=== PATIENT | female | born 1985 | race Caucasian/White ===

== ENCOUNTER → 2017-05-13 | Outpatient (CLI) | payer BC ==
[2017-05-13 08:07] LABS: HCT 43.5 % (34.0-46.0); HGB 13.7 gm/dL (11.4-16.0); MCH 28.9 pg (25.0-35.0); MCHC 31.6 g/dL (31.0-37.0); MCV 91.7 fL (80.0-100.0); Mean Platelet Volume 8.8; Platelet Count 216 k/uL (150-450); RBC 4.75 m/uL (3.80-5.40); RDW 14.6 % (11.5-15.5); WBC 7.7 k/uL (3.8-10.6)
[2017-05-13 08:38] LABS: T4, Free (Free Thyroxine) 0.93 ng/dL (0.78-2.19)
[2017-05-13 08:50] LABS: ALT 28 U/L (9-52); AST 19 U/L (14-36); Albumin 4.3 g/dL (3.5-5.0); Alkaline Phosphatase 56 U/L (38-126); Anion Gap 9 mmol/L; Blood Urea Nitrogen 15 mg/dL (7-17); Calcium 9.4 mg/dL (8.4-10.2); Carbon Dioxide 26 mmol/L (22-30); Chloride 107 mmol/L (98-107); Cholesterol 199 mg/dL (<200); Glucose 97 mg/dL (74-99); HDL Cholesterol 58 mg/dL (40-60); LDL Cholesterol,Calculated 128 mg/dL (0-99); Potassium 4.1 mmol/L (3.5-5.1); Sodium 142 mmol/L (137-145); Total Bilirubin 0.8 mg/dL (0.2-1.3); Total Protein 6.9 g/dL (6.3-8.2); Triglycerides 63 mg/dL (<150)
== END | disposition home or self-care (01) ==
LOC: LABWHC1 07:47
PROVIDERS: ATTEND Psychiatry & Neurology Psychiatry
DX: E03.9 Hypothyroidism, unspecified (principal)
CPT/HCPCS: 36415; 80053; 80061; 84439; 84443; 85027; 86038

== ENCOUNTER → 2020-06-14 | Outpatient (CLI) | payer OTHER ==
[2020-06-14 14:51] LABS: HCT 42.8 % (37.2-46.3); HGB 13.5 g/dL (12.0-15.0); MCH 27.7 pg (27.0-32.0); MCHC 31.5 g/dL (32.0-37.0); MCV 87.9 fL (80.0-97.0); Platelet Count 219 X 10*3/uL (140-440); RBC 4.87 X 10*6/uL (4.10-5.20); RDW 13.6 % (11.5-14.5); WBC 8.87 X 10*3/uL (4.50-10.00)
[2020-06-14 15:21] LABS: African American GFR (CKD) 95.3 (60.0-200.0); Albumin 4.7 g/dL (3.80-4.90); Albumin/Globulin Ratio 2.47 (1.60-3.17); Anion Gap 7.3 mmol/L (4.00-12.00); BUN/Creat Ratio 15.56 Ratio (12.00-20.00); Carbon Dioxide 25.7 mmol/L (21.6-31.8); Chol/HDL Ratio 4.77; Globulin 1.9 g/dL (1.6-3.3); LDL Cholesterol,Calculated 159.2 mg/dL (0.0-131.0); Non-African American GFR(CKD) 82.3 (60.0-200.0); Total Bilirubin 0.8 mg/dL (0.3-1.2); Total Protein 6.6 g/dL (6.2-8.2); VLDL Calculation 21.8 mg/dL (5.00-40.00)
== END | disposition home or self-care (01) ==
LOC: LABWHC1 09:14
PROVIDERS: ATTEND Psychiatry & Neurology Psychiatry
DX: F41.1 Generalized anxiety disorder (principal)
CPT/HCPCS: 36415; 80053; 80061; 84439; 84443; 85027

== ENCOUNTER → 2021-01-15 | Outpatient (CLI) | payer MEDICAID ==
[2021-01-15 15:16] LABS: HCT 43.1 % (37.2-46.3); HGB 13.5 g/dL (12.0-15.0); MCH 28.5 pg (27.0-32.0); MCHC 31.3 g/dL (32.0-37.0); MCV 90.9 fL (80.0-97.0); Mean Platelet Volume 12.6 fL (9.5-12.2); Platelet Count 211 X 10*3/uL (140-440); RBC 4.74 X 10*6/uL (4.10-5.20); WBC 7.72 X 10*3/uL (4.50-10.00)
[2021-01-15 17:04] LABS: African American GFR (CKD) 109.2 (60.0-200.0); Albumin 4.3 g/dL (3.80-4.90); Albumin/Globulin Ratio 1.95 (1.60-3.17); Anion Gap 7.7 mmol/L (4.00-12.00); BUN/Creat Ratio 22.5 Ratio (12.00-20.00); Calcium 9.3 mg/dL (8.7-10.3); Carbon Dioxide 24.3 mmol/L (21.6-31.8); Chol/HDL Ratio 4.59; Globulin 2.2 g/dL (1.6-3.3); LDL Cholesterol,Calculated 133.8 mg/dL (0.0-131.0); Non-African American GFR(CKD) 94.2 (60.0-200.0); Potassium 4.2 mmol/L (3.5-5.5); Total Bilirubin 0.5 mg/dL (0.2-1.2); Total Protein 6.5 g/dL (6.2-8.2); VLDL Calculation 13.2 mg/dL (5.00-40.00)
== END | disposition home or self-care (01) ==
LOC: LABWHC1 09:08
PROVIDERS: ATTEND Family Medicine
DX: Z00.01 Encounter for general adult medical examination with abnormal findings (principal)
CPT/HCPCS: 36415; 80053; 80061; 85027

== ENCOUNTER → 2021-01-15 | Outpatient (CLI) | payer MEDICAID | END | disposition home or self-care (01) | LOC: LABWHC1 13:04 | DX: N95.1 Menopausal and female climacteric states (principal) | CPT/HCPCS: 36415; 82397 ==

== ENCOUNTER → 2021-03-15 | Outpatient (CLI) | payer MEDICAID ==
--- NOTE | 2021-03-15 17:36 | CONS ---
CONSULTATION DATE OF SERVICE: 03/15/2021 This 35-year-old lady has been evaluated in Sleep Center for possible obstructive sleep apnea-hypopnea syndrome and for significant excessive daytime sleepiness and episodes of gsh-nq-yqyax movements during sleep. HISTORY OF PRESENT ILLNESS/SLEEP-WAKE EVALUATION: Patient's usual sleep schedule is from 11 p.m. until 9 a.m. She does have problems with falling asleep, has a TV set in the bedroom. She usually sleeps on the back and side positions. According to her , she snores and has witnessed episodes of stopped breathing during sleep. The patient wakes up from sleep with episodes of gasping for air up to 10 times at night, and up to 2 episodes of nocturia. Positive history of kicking, punching, talking, urk-it-ztvrc movements during sleep. No history of hypnagogic hallucinations, sleep paralysis or cataplexy. In the morning the patient wakes up tired, has difficulties paying attention, falling asleep during the day, has problems with concentration, irritability, depression. Dillon Sleepiness Scale is significantly increased at 15. She takes 1 to 2 naps, according to patient, whenever possible. PAST MEDICAL HISTORY: Positive for depression. PAST SURGICAL HISTORY: Breast reduction. Cyst removed from abdomen. MEDICATIONS: 1. Cymbalta 90 mg once a day. 2. medications. SOCIAL HISTORY: Negative for smoking or using alcohol. FAMILY HISTORY: Sleep apnea, cancer, heart problems. REVIEW OF SYSTEMS: Multiple awakenings from sleep significant excessive daytime sleepiness. No fevers. No double vision. No recent chest pain. No shortness of breath. No abdominal pain. No bleeding episodes. No blood in the urine. No seizure episodes. PHYSICAL EXAMINATION: GENERAL: Pleasant lady without distress. VITAL SIGNS: BP 107/71, HR 70, RR 15, height 5 feet 7-1/2 inches, weight 180 pounds, body mass index 27.7, temperature 98.9, oxygen saturation at room air 100%. HEENT: PERRLA, EOMI, evaluation of oropharynx showed tongue protrudes midline. Extremely low position of soft palate; Mallampati IV. NECK: Supple, no JVD. Thyroid is not palpable. Neck measures 14 inches in circumference. LUNGS: Clear to percussion and to auscultation. Good air exchange. No wheezing or rhonchi. HEART: S1, S2 regular. No murmurs, gallops, or rubs. ABDOMEN: Soft and nontender. Bowel sounds are present. No organomegaly appreciated. EXTREMITIES: No clubbing or cyanosis. ACTUARIAL MANAGER: Awake, alert, and oriented X3. Cranial nerves 2 to 7 intact. There is no fasciculation or atrophy. noted. No focal deficits observed. IMPRESSION: 1. Snoring, multiple awakenings from sleep with episodes of gasping for air, extremely low position of soft palate, significant excessive daytime sleepiness; obstructive sleep apnea-hypopnea syndrome. 2. Very high level of sleepiness. Dillon Sleepiness Scale of 15, dictating necessity to include narcolepsy without cataplexy and idiopathic hypersomnia in differential diagnosis. 3. Pvl-wj-fzpnq movements; possibly REM sleep behavioral disorder. 4. Significant amount of leg movements. Possible periodic limb movements. 5. History of depression. 6. Status post breast reduction. 7. Status post cyst removed from abdomen. PLAN: 1. Polysomnography for evaluation of patient's breathing during sleep. 2. CPAP/BiPAP titration if sleep study confirms obstructive sleep apnea-hypopnea syndrome. 3. Preferable position during sleep on the side. 4. No driving if patient feels any sleepiness. 5. I will see patient for follow up visit to explain results of testing and following plan. 6. If sleep study is negative, the patient will need to proceed with a multiple sleep latency test. 7. Precautions related to possible REM sleep behavioral disorder. No access to fire at home. Close doors. Close windows. Otoniel-size bed. Preferably put mattress on the floor. Thank you very much for referring this patient for consultation. Sincerely, Titus Angel MD, PhD, FAASM Diplomat of [place] [employer] Sleep Medicine Board of [place] [employer] Spanish Interpreter of [facility] [place] MMODL / IJN: [id number] /
== END ==
LOC: SLEEP 15:28
PROVIDERS: ATTEND Internal Medicine
DX: G47.33 Obstructive sleep apnea (adult) (pediatric) (principal); F32.9 Major depressive disorder, single episode, unspecified; Z98.890 Other specified postprocedural states
CPT/HCPCS: 99211

== ENCOUNTER → 2021-04-29 | Outpatient (CLI) | payer MEDICAID | END | disposition home or self-care (01) | LOC: LABMAIN 18:45 | PROVIDERS: ATTEND Physician Assistant Medical | DX: U07.1 COVID-19 (principal) | CPT/HCPCS: 87635 ==

== ENCOUNTER → 2021-05-23 | Outpatient (CLI) | payer MEDICAID ==
--- NOTE | 2021-05-23 17:13 | SFUN ---
SLEEP CENTER FOLLOW UP NOTE DATE OF SERVICE: 05/23/2021 A 35-year-old lady has been followed in Sleep Center for treatment of narcolepsy. She was recently started on treatment with Adderall 5 mg twice a day and with this regimen she feels significantly better, but she is following by IVF clinic and she was recommended there that she should not take Adderall. Her [place] Sleepiness Scale today increased to 15. CURRENT MEDICATIONS: Cymbalta 10 units. . PHYSICAL EXAMINATION: GENERAL: Patient in no distress. BP 195/64, HR 64, RR 12, height 5 feet 7-1/2 inches, weight 180 pounds, temperature 98.5, oxygen saturation at room air 96%. Oropharynx: Low position of soft palate, Mallampati 4. NECK: Supple, no JVD. Thyroid is not palpable. LUNGS: Clear to percussion and to auscultation. Good air exchange. No wheezing or rhonchi. HEART: S1, S2 regular. No murmurs, gallops, or rubs. ABDOMEN: Soft and nontender. Bowel sounds are present. No organomegaly appreciated. EXTREMITIES: No clubbing or cyanosis. LAND SURVEYOR: Awake, alert, and oriented X3. Cranial nerves 2 to 7 intact. There is no fasciculation or atrophy. noted. No focal deficits observed. IMPRESSION: 1. 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 2. History of depression. 3. Status post breast reduction surgery. 4. Status post cyst removed from the abdomen. PLAN: 1. Adderall has been stopped. 2. We will consider treatment with modafinil 200 mg in the morning once a day. After discussion with IVF Clinic if there are no contraindications. 3. Precautions related to driving. No driving if feeling sleepiness. 4. Sleep hygiene with regular time in bed for 7-1/2-8 hours. 5. Daytime naps permitted. Thank you very much for allowing me to participate in management of your patient. Sincerely, Titus Angel MD, PhD, FAASM Diplomat of [place] [employer] Sleep Medicine Board of [place] [employer] Automobile Glass Technician of [facility] [place] MMODL / JANETTEN: [id number] /
== END ==
LOC: SLEEP 13:38
PROVIDERS: ATTEND Internal Medicine
DX: G47.33 Obstructive sleep apnea (adult) (pediatric) (principal); G47.419 Narcolepsy without cataplexy; F32.A Depression, unspecified; Z98.890 Other specified postprocedural states

== ENCOUNTER → 2021-05-24 | Outpatient (CLI) | payer MEDICAID | END | disposition home or self-care (01) | LOC: LABMAIN 20:17 | PROVIDERS: ATTEND Emergency Medicine | DX: Z20.822 Contact with and (suspected) exposure to COVID-19 (principal) | CPT/HCPCS: 87635 ==

== ENCOUNTER 2021-11-03 18:01 | Emergency (ER) | payer MEDICAID, OTHER ==
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
[2021-11-03 18:32] VITALS: BP 120/70; PULSE 86; RESP 22; TEMP 97.8
--- NOTE | 2021-11-03 18:33 | XR ---
EXAMINATION TYPE: XR clavicle RT DATE OF EXAM: 11/03/2021 COMPARISON: NONE HISTORY: Pain TECHNIQUE: 2 views FINDINGS: I see no fracture nor dislocation. AC joint is intact. IMPRESSION: Negative right clavicle exam.
--- NOTE | 2021-11-03 18:34 | XR ---
EXAMINATION TYPE: XR chest 2V DATE OF EXAM: 11/03/2021 COMPARISON: NONE HISTORY: Pain TECHNIQUE: 2 views FINDINGS: Heart and mediastinum are normal. Lungs are clear. Diaphragm is normal. Bony thorax is inta ct. Pulmonary vascularity is normal. IMPRESSION: Normal chest. Normal heart
--- NOTE | 2021-11-03 18:35 | XR ---
EXAMINATION TYPE: XR soft tissue neck DATE OF EXAM: 11/03/2021 COMPARISON: NONE HISTORY: Pain TECHNIQUE: 2 views FINDINGS: Cervical vertebra have normal alignment. Posterior elements are intact. No compression frac ture. Prevertebral soft tissues appear normal. Epiglottis is normal. Subglottic trachea is normal. Tonsils and adenoids appear normal. IMPRESSION: Normal cervical soft tissue exam.
== END 2021-11-03 18:48 | disposition home or self-care (01) ==
LOC: EC 18:01
DX: S20.219A Contusion of unspecified front wall of thorax, initial encounter (principal); T74.11XA Adult physical abuse, confirmed, initial encounter; Y04.8XXA Assault by other bodily force, initial encounter
CPT/HCPCS: 70360; 71046; 99285

== ENCOUNTER → 2021-11-03 | Outpatient (CLI) | payer MEDICAID ==
[2021-11-03 11:36] LABS: HCT 45.2 % (37.2-46.3); HGB 14.2 g/dL (12.0-15.0); MCH 28.2 pg (27.0-32.0); MCHC 31.4 g/dL (32.0-37.0); MCV 89.9 fL (80.0-97.0); Mean Platelet Volume 11.2 fL (9.5-12.2); NRBC Per 100 WBC 0 /100 WBCS (0.0-0.0); Platelet Count 235 X 10*3/uL (140-440); RBC 5.03 X 10*6/uL (4.10-5.20); WBC 7.38 X 10*3/uL (4.50-10.00)
[2021-11-03 12:09] LABS: ALT 16 U/L (8-44); AST 18 U/L (13-35); African American GFR (CKD) 108.4 (60.0-200.0); Albumin 4.9 g/dL (3.8-4.9); Albumin/Globulin Ratio 2.04 (1.60-3.17); Alkaline Phosphatase 77 U/L (41-126); BUN/Creat Ratio 25.25 Ratio (12.00-20.00); Blood Urea Nitrogen 20.2 mg/dL (9.0-27.0); Calcium 9.2 mg/dL (8.7-10.3); Carbon Dioxide 24.4 mmol/L (20.0-27.5); Chloride 106 mmol/L (96-109); Chol/HDL Ratio 4.07 Ratio; Globulin 2.4 g/dL (1.6-3.3); Glucose 94 mg/dL (70-110); LDL Cholesterol,Calculated 156.1 mg/dL (0.0-131.0); Non-African American GFR(CKD) 93.5 (60.0-200.0); Sodium 140 mmol/L (135-145); Total Protein 7.3 g/dL (6.2-8.2); VLDL Calculation 12.78 mg/dL (5.00-40.00)
== END | disposition home or self-care (01) ==
LOC: LABMAIN 07:30
PROVIDERS: ATTEND Psychiatry & Neurology Psychiatry
DX: F41.1 Generalized anxiety disorder (principal)
CPT/HCPCS: 80053; 80061; 84439; 84443; 85027

== ENCOUNTER → 2022-01-17 | Outpatient (CLI) | payer MEDICAID ==
[2022-01-17 14:36] LABS: HCT 42.9 % (37.2-46.3); HGB 13.7 g/dL (12.0-15.0); MCH 28.7 pg (27.0-32.0); MCHC 31.9 g/dL (32.0-37.0); MCV 89.9 fL (80.0-97.0); Mean Platelet Volume 11.3 fL (9.5-12.2); NRBC Per 100 WBC 0 /100 WBCS (0.0-0.0); Platelet Count 217 X 10*3/uL (140-440); RBC 4.77 X 10*6/uL (4.10-5.20); WBC 5.71 X 10*3/uL (4.50-10.00)
[2022-01-17 17:33] LABS: ALT 20 U/L (8-44); AST 24 U/L (13-35); African American GFR (CKD) 108.4 (60.0-200.0); Albumin 4.4 g/dL (3.8-4.9); Alkaline Phosphatase 71 U/L (41-126); Blood Urea Nitrogen 17.6 mg/dL (9.0-27.0); Calcium 9.2 mg/dL (8.7-10.3); Carbon Dioxide 24.5 mmol/L (20.0-27.5); Chloride 105 mmol/L (96-109); Ferritin 54.2 ng/mL (10.0-291.0); Globulin 2.2 g/dL (1.6-3.3); Glucose 93 mg/dL (70-110); Iron 109 ug/dL (50-170); Non-African American GFR(CKD) 93.5 (60.0-200.0); Potassium 4.4 mmol/L (3.5-5.5); Sodium 141 mmol/L (135-145); Total Protein 6.6 g/dL (6.2-8.2)
[2022-01-17 17:34] LABS: % Iron Saturation 33.56 (12.00-45.00); Chol/HDL Ratio 4.85 Ratio; LDL Cholesterol,Calculated 148.1 mg/dL (0.0-131.0); Total Iron Binding Capacity 325 ug/dL (228-460)
== END | disposition home or self-care (01) ==
LOC: LABWHC1 09:07
PROVIDERS: ATTEND Family Medicine
DX: Z00.01 Encounter for general adult medical examination with abnormal findings (principal); D64.9 Anemia, unspecified
CPT/HCPCS: 36415; 80053; 80061; 82607; 82728; 82746; 83540; 83550; 85027

== ENCOUNTER 2022-01-20 18:19 | Emergency (ER) | payer MEDICAID, OTHER ==
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
[2022-01-20 18:34] VITALS: BP 103/57; PULSE 78; RESP 16; TEMP 99.3
--- NOTE | 2022-01-20 18:52 | XR ---
EXAMINATION TYPE: XR shoulder complete RT DATE OF EXAM: 01/20/2022 COMPARISON: NONE HISTORY: Shoulder pain TECHNIQUE: 3 views FINDINGS: There is no evidence of fracture nor dislocation. Joint spaces are normal. No pathologic ca lcification. IMPRESSION: Negative right shoulder exam. No fracture.
== END 2022-01-20 18:57 | disposition home or self-care (01) ==
LOC: EC 18:19
DX: S46.911A Strain of unspecified muscle, fascia and tendon at shoulder and upper arm level, right arm, initial encounter (principal); X50.9XXA Other and unspecified overexertion or strenuous movements or postures, initial encounter
CPT/HCPCS: 99283

== ENCOUNTER → 2022-01-28 | Outpatient (CLI) | payer OTHER ==
--- NOTE | 2022-01-28 21:33 | MR ---
EXAMINATION TYPE: MR shoulder RT wo con DATE OF EXAM: 01/28/2022 COMPARISON: Right shoulder x-ray 8 days ago HISTORY: Right shoulder pain and decreased ROM due to work related injury. TECHNIQUE: Multiplanar, multisequence imaging of the right shoulder is performed without contrast. FINDINGS: Rotator Cuff: Distal supraspinatus and infraspinatus tendons are grossly intact. Subscapularis tendon is intact. Rotator cuff muscle bulk is preserved. Acromioclavicular Joint: Sdyg-vl-joupnszm narrowing and superior capsular hypertrophy. Underlying fat plane maintained. No significant spurring. Glenohumeral Joint: Small joint effusion. No significant spurring. Labrum: The labrum appears grossly intact given limitation of non-arthrogram study. Biceps Tendon: The long head of biceps is in normal location within bicipital groove. Bone marrow signal: No focal abnormal marrow signal is appreciated. Other: No additional significant abnormality is appreciated. IMPRESSION: No rotator cuff or labral tear identified.
== END | disposition home or self-care (01) ==
LOC: RADMRIMAIN 20:10
PROVIDERS: ATTEND Emergency Medicine
DX: M25.511 Pain in right shoulder (principal)

== ENCOUNTER 2022-07-25 11:59 | Emergency (ER) | payer MEDICAID, OTHER ==
[2022-07-25 12:19] VITALS: BP 123/66; PULSE 77; RESP 18
[2022-07-25 12:20] VITALS: TEMP 98.1
--- NOTE | 2022-07-25 12:30 | ED ---
General Adult HPI - General Chief complaint: Needlestick/Exposure Stated complaint: IHS Time Seen by Provider: 07/25/22 12:01 Source: patient, RN notes reviewed Mode of arrival: ambulatory Limitations: no limitations - History of Present Illness Initial comments: 28-year-old female presents emergency Department with chief complaint of needlestick. Patient was disposing vacuum container for blood cultures and states it poked her finger. Patient states that poked her right middle finger. Patient merely washed. Patient's tetanus is up-to-date. Patient offers no other complaints. - Related Data Allergies Allergy/AdvReac Type Severity Reaction Status Date / Time chocolate flavor Allergy Nausea & Verified 07/25/22 12:19 Vomiting & Diarrhea Review of Systems ROS Statement: Those systems with pertinent positive or pertinent negative responses have been documented in the HPI. ROS Other: All systems not noted in ROS Statement are negative. Past Medical History Past Medical History: No Reported History Additional Past Medical History / Comment(s): narcolepsy History of Any Multi-Drug Resistant Organisms: None Reported Past Surgical History: Breast Surgery Additional Past Surgical History / Comment(s): breast reduction, D&C and uterine ablasion. salpingectomy Smoking Status: Never smoker Past Alcohol Use History: Occasional Past Drug Use History: None Reported General Exam Limitations: no limitations General appearance: alert, in no apparent distress Head exam: Present: atraumatic, normocephalic, normal inspection Eye exam: Present: normal appearance, PERRL, EOMI. Absent: scleral icterus, conjunctival injection, periorbital swelling ENT exam: Present: normal exam, normal oropharynx, mucous membranes moist Neck exam: Present: normal inspection, full ROM. Absent: tenderness, meningismus, lymphadenopathy Respiratory exam: Present: normal lung sounds bilaterally. Absent: respiratory distress, wheezes, rales, rhonchi, stridor Cardiovascular Exam: Present: regular rate, normal rhythm, normal heart sounds. Absent: systolic murmur, diastolic murmur, rubs, gallop, clicks Extremities exam: Present: other (Right hand third digit puncture wound noted) Course Vital Signs 07/25/22 12:13 Temperature 98.1 F Pulse Rate 77 Respiratory 18 Rate Blood Pressure 123/66 O2 Sat by Pulse 99 Oximetry Medical Decision Making - Medical Decision Making Was pt. sent in by a medical professional or institution (Dr., PA, MUNICIPAL CLERK, urgent care, hospital, or snf...) When possible be specific @ -No Did you speak to anyone other than the patient for history (EMS, parent, family, police, friend...)? What history was obtained from this source @ -No Did you review nursing and triage notes (agree or disagree)? Why? @ -I reviewed and agree with nursing and triage notes Were old charts reviewed (outside hosp., previous admission, EMS record, old EKG, old radiological studies, urgent care reports/EKG's, snf records)? Report findings @ -No old charts were reviewed Differential Diagnosis (chest pain, altered mental status, abdominal pain women, abdominal pain men, vaginal bleeding, weakness, fever, dyspnea, syncope, headache, dizziness, GI bleed, back pain, seizure, CVA, palpatations, mental health, musculoskeletal)? @ -Needlestick EKG interpreted by me (3pts min.). @ -[None X-rays interpreted by me (1pt min.). @ -None done CT interpreted by me (1pt min.). @ -None done U/S interpreted by me (1pt. min.). @ -None done What testing was considered but not performed or refused? (CT, X-rays, U/S, labs)? Why? @ -None What meds were considered but not given or refused? Why? @ -None Did you discuss the management of the patient with other professionals (professionals i.e. FLOYD Diaz, MUNICIPAL CLERK, lab, RT, psych nurse, social work specialist, community service worker, teacher, aboriginal liaison officer, pillowcase folder)? Give summary @ -No Was smoking cessation discussed for >3mins.? @ -No Was critical care preformed (if so, how long)? @ -No Were there social determinants of health that impacted care today? How? (Homelessness, low income, unemployed, alcoholism, drug addiction, transportation, low edu. Level, literacy, decrease access to med. care, snf, rehab)? @ -No Was there de-escalation of care discussed even if they declined (Discuss DNR or withdrawal of care, Hospice)? DNR status @ -No What co-morbidities impacted this encounter? (DM, HTN, Smoking, COPD, CAD, Cancer, CVA, ARF, Chemo, Hep., AIDS, mental health diagnosis, sleep apnea, morbid obesity)? @ -None Was patient admitted / discharged? Hospital course, mention meds given and route, prescriptions, significant lab abnormalities, going to OR and other pertinent info. @ -[Discharge patient has a needlestick patient offered prophylaxis will be based on initial HIV testing. Return parameters were discussed. Undiagnosed new problem with uncertain prognosis? @ -No Drug Therapy requiring intensive monitoring for toxicity (Heparin, Nitro, Insulin, Cardizem)? @ -No Were any procedures done? @ -No Diagnosis/symptom? @ -Needlestick Acute, or Chronic, or Acute on Chronic? @ -Acute Uncomplicated (without systemic symptoms) or Complicated (systemic symptoms)? @ -Uncomplicated Side effects of treatment? @ -No Exacerbation, Progression, or Severe Exacerbation? @ -No Poses a threat to life or bodily function? How? (Chest pain, [place], [place], pneumonia, PE, COPD, DKA, ARF, appy, cholecystitis, CVA, Diverticulitis, Homicidal, Suicidal, threat to staff... and all critical care pts) @ -No Disposition Clinical Impression: Needle stick injury of finger Disposition: HOME SELF-CARE Condition: Stable Instructions (If sedation given, give patient instructions): Needle Stick Injuries (ED) Additional Instructions: Please return to the Emergency Department if symptoms worsen or any other concerns. Is patient prescribed a controlled substance at d/c from ED?: No Referrals: Ryan Chau MD [Primary Care Provider] - 1-2 days Time of Disposition: 12:30
== END 2022-07-25 12:41 | disposition home or self-care (01) ==
LOC: EC 11:59
DX: S61.232A Puncture wound without foreign body of right middle finger without damage to nail, initial encounter (principal); Z91.018 Allergy to other foods; W46.1XXA Contact with contaminated hypodermic needle, initial encounter
CPT/HCPCS: 99282

== ENCOUNTER → 2022-11-28 | Outpatient (CLI) | payer MEDICAID ==
[2022-11-28 18:23] LABS: Basophils # (A) 0.05 X 10*3/uL (0.00-0.10); Basophils % (A) 0.7 %; Eosinophils # (A) 0.11 X 10*3/uL (0.04-0.35); Eosinophils % (A) 1.6 %; HGB 13.2 d/dL (12.0-15.0); Lymphocytes % (A) 20.3 %; MCH 28.7 pg (27.0-32.0); MCHC 31.4 d/dL (32.0-37.0); MCV 91.3 FL (80.0-97.0); Mean Platelet Volume 11.8 FL (9.5-12.2); Monocytes # (A) 0.36 X 10*3/uL (0.20-1.00); Monocytes % (A) 5.2 %; NRBC Per 100 WBC 0 X 10*3/uL (0.00-0.01); Neutrophils # (A) 4.94 X 10*3/uL (1.80-7.70); Neutrophils % (A) 71.9 %; Platelet Count 194 X 10*3/uL (140-440); RDW 13.9 % (11.5-14.5); WBC 6.88 X 10*3/uL (4.50-10.00)
[2022-11-28 18:45] LABS: % Iron Saturation 25.76 (12.00-45.00); ALT 18 U/L (8-44); AST 21 U/L (13-35); Blood Urea Nitrogen 15.3 mg/dL (9.0-27.0); Chol/HDL Ratio 4.33 Ratio; Ferritin 37.6 ng/mL (10.0-291.0); Glucose 98 mg/dL (70-110); Iron 85 UG/DL (50-170); LDL Cholesterol,Calculated 159.3 mg/dL (0.0-131.0); T4, Free (Free Thyroxine) 1.06 ng/dL (0.80-1.80); Total Iron Binding Capacity 330 UG/DL (228-460); VLDL Calculation 13.74 mg/dL (5.00-40.00)
== END | disposition home or self-care (01) ==
LOC: LABWHC1 09:17
PROVIDERS: ATTEND Obstetrics & Gynecology
DX: Z01.419 Encounter for gynecological examination (general) (routine) without abnormal findings (principal); E55.9 Vitamin D deficiency, unspecified; E78.00 Pure hypercholesterolemia, unspecified; E03.9 Hypothyroidism, unspecified; R53.83 Other fatigue
CPT/HCPCS: 36415; 80061; 82306; 82565; 82728; 82947; 83540; 83550; 84439; 84443; 84450; 84460; 84481; 84520; 85025

== ENCOUNTER 2023-04-08 03:59 | Emergency (ER) | payer MEDICAID ==
[2023-04-08 04:21] VITALS: RESP 20; TEMP 98.4
[2023-04-08] MEDS ORDERED: KETOROLAC 15 MG/ML 1 ML VIAL IM STA (04:39)
[2023-04-08] MEDS ORDERED: AMOXIC-POT CLAV 875-125MG 1 EACH TAB PO STA (04:39)
[2023-04-08] MEDS ORDERED: CIPROFLOXACIN-DEXAMETH 0.3-0.1% DROPS 7.5 ML BTL RIGHT EAR STA (04:39)
[2023-04-08] MEDS ORDERED: dexAMETHasone 2 MG TAB PO STA (04:39)
--- NOTE | 2023-04-08 04:41 | ED ---
ENT HPI - General Chief complaint: ENT Stated complaint: Earache, Neck pain, Sore throat Time Seen by Provider: 04/08/23 04:08 Source: patient, RN notes reviewed, old records reviewed Mode of arrival: ambulatory Limitations: no limitations - History of Present Illness Initial comments: This is a 37-year-old female to the emergency department for evaluation of severe facial pain neck pain right ear pain difficulty hearing, no fevers no difficulty swallowing sore throat and upper respiratory infections cough congestion patient has no medical history takes no medications no travel history no sick contacts, patient is very upset secondary amount of significant pain MD complaint: sore throat, ear pain, difficulty swallowing -: days(s) Location: R ear, throat Severity: severe Severity scale (1-10): 10 Consistency: constant Improves with: none Worsens with: none Associated Symptoms: sore throat, tinnitus - Related Data Allergies Allergy/AdvReac Type Severity Reaction Status Date / Time chocolate flavor Allergy Nausea & Verified 07/25/22 12:19 Vomiting & Diarrhea Review of Systems ROS Statement: Those systems with pertinent positive or pertinent negative responses have been documented in the HPI. ROS Other: All systems not noted in ROS Statement are negative. Past Medical History Past Medical History: No Reported History Additional Past Medical History / Comment(s): narcolepsy History of Any Multi-Drug Resistant Organisms: None Reported Past Surgical History: Breast Surgery Additional Past Surgical History / Comment(s): breast reduction, D&C and uterine ablasion. salpingectomy Smoking Status: Never smoker Past Alcohol Use History: Occasional Past Drug Use History: None Reported General Exam Limitations: no limitations General appearance: alert, in no apparent distress, anxious Head exam: Present: atraumatic, normocephalic, normal inspection Eye exam: Present: normal appearance, PERRL, EOMI. Absent: scleral icterus, conjunctival injection, periorbital swelling ENT exam: Present: normal exam, mucous membranes moist Neck exam: Present: normal inspection. Absent: tenderness, meningismus, lymphadenopathy Respiratory exam: Present: normal lung sounds bilaterally. Absent: respiratory distress, wheezes, rales, rhonchi, stridor Cardiovascular Exam: Present: normal rhythm, tachycardia, normal heart sounds. Absent: systolic murmur, diastolic murmur, rubs, gallop, clicks GI/Abdominal exam: Present: soft, normal bowel sounds. Absent: distended, tenderness, guarding, rebound, rigid Extremities exam: Present: normal inspection, full ROM, normal capillary refill. Absent: tenderness, pedal edema, joint swelling, calf tenderness Back exam: Present: normal inspection Neurological exam: Present: alert, oriented X3, CN II-XII intact Psychiatric exam: Present: normal affect, normal mood Skin exam: Present: warm, dry, intact, normal color. Absent: rash Course Vital Signs 04/08/23 04/08/23 04:00 06:19 Temperature 98.4 F Pulse Rate 103 H 102 H Respiratory 20 20 Rate Blood Pressure 103/68 99/65 O2 Sat by Pulse 98 98 Oximetry - Reevaluation(s) Reevaluation #1: 04/08/23 06:13 Medical record is reviewed Reevaluation #2: 04/08/23 06:13 Patient symptoms improved Reevaluation #3: 04/08/23 06:14 Patient informed results and questions answered Reevaluation #4: 04/08/23 05:05 Was pt. sent in by a medical professional or institution (Dr. PA, MICROWAVE TECHNICIAN, urgent care, hospital, or longterm...) When possible be specific @ -no Did you speak to anyone other than the patient for history (EMS, parent, family, police, friend...)? What history was obtained from this source @ -no Did you review nursing and triage notes (agree or disagree)? Why? @ -agree Are old charts reviewed (outside hosp., previous admission, EMS record, old EKG, old radiological studies, urgent care reports/EKG's, longterm records)? Report findings @ -yes Differential Diagnosis (chest pain, altered mental status, abdominal pain women, abdominal pain men, vaginal bleeding, weakness, fever, dyspnea, syncope, headache, dizziness, GI bleed, back pain, seizure, CVA, palpatations, mental health, musculoskeletal)? @ -prior EKG interpreted by me (3pts min.). @ -no X-rays interpreted by me (1pt min.). @ -yes negative for acute disease CT interpreted by me (1pt min.). @ -no U/S interpreted by me (1pt. min.). @ -no What testing was considered but not performed or refused? (CT, X-rays, U/S, labs)? Why? @ -none What meds were considered but not given or refused? Why? @ -none Did you discuss the management of the patient with other professionals (professionals i.e. , PA, MICROWAVE TECHNICIAN, lab, RT, psych nurse, social work nurse, trauma counsellor, teacher, chief contract officer, lining caser)? Give summary @ -no Was smoking cessation discussed for >3mins.? @ -no Was critical care preformed (if so, how long)? @ -no Were there social determinants of health that impacted care today? How? (Homelessness, low income, unemployed, alcoholism, drug addiction, transportation, low edu. Level, literacy, decrease access to med. care, half-way, rehab)? @ -none Was there de-escalation of care discussed even if they declined (Discuss DNR or withdrawal of care, Hospice)? DNR status @ -no What co-morbidities impacted this encounter? (DM, HTN, Smoking, COPD, CAD, Cancer, CVA, ARF, Chemo, Hep., AIDS, mental health diagnosis, sleep apnea, morbid obesity)? @ -none Was patient admitted / discharged? Hospital course, mention meds given and route, prescriptions, significant lab abnormalities, going to OR and other pertinent info. @ - 37 female to the emergency department today with otitis externa symptoms improved dramatically here in the ER feels improved and can be discharged home Discharge Undiagnosed new problem with uncertain prognosis? @ -no Drug Therapy requiring intensive monitoring for toxicity (Heparin, Nitro, Insulin, Cardizem)? @ -no Were any procedures done? @ -no Diagnosis/symptom? @ -Otitis externa right, URI Acute, or Chronic, or Acute on Chronic? @ -Acute Uncomplicated (without systemic symptoms) or Complicated (systemic symptoms)? @ -Complicated Side effects of treatment? @ -no Exacerbation, Progression, or Severe Exacerbation? @ -exacerbation Poses a threat to life or bodily function? How? (Chest pain, [place], [place], pneumonia, PE, COPD, DKA, ARF, appy, cholecystitis, CVA, Diverticulitis, Homicidal, Suicidal, threat to staff... and all critical care pts) @ -no Medical Decision Making - Medical Decision Making 37 female to the emergency department today with otitis externa symptoms improved dramatically here in the ER feels improved and can be discharged home - Lab Data Lab Results 04/08/23 04/08/23 Range/Units 04:05 04:05 Influenza Type A (PCR) Not Detected (Not Detectd) Influenza Type B (PCR) Not Detected (Not Detectd) RSV (PCR) Not Detected (Not Detectd) SARS-CoV-2 (PCR) Not Detected (Not Detectd) Group A Strep (PCR) NOT DETECTED (Not Detectd) - Radiology Data Radiology results: report reviewed (X-ray soft tissue neck is negative for acute disease), image reviewed Disposition Clinical Impression: Right otitis media Disposition: HOME SELF-CARE Condition: Good Instructions (If sedation given, give patient instructions): Barotitis Media (ED), Ear Infection (ED), Earache (ED) Is patient prescribed a controlled substance at d/c from ED?: No Referrals: Ryan Chau MD [Primary Care Provider] - 1-2 days Time of Disposition: 05:29
[2023-04-08] MEDS ORDERED: traMADol 50 MG STARTER PACK 3 TAB BTL PO STA (06:12)
[2023-04-08 06:36] VITALS: BP 99/65; PULSE 102
--- NOTE | 2023-04-08 06:48 | XR ---
EXAMINATION TYPE: XR soft tissue neck DATE OF EXAM: 04/08/2023 COMPARISON: 11/03/2021 HISTORY: 37-year-old female right ear pain, sinus congestion, sore throat TECHNIQUE: AP and lateral views FINDINGS: The nasopharyngeal and oropharyngeal airways are clear. The epiglottis and prevertebral soft tissues are normal. Minimal early degenerative disc disease C5-C6. No abnormal narrowing of the subglottic ai rway. IMPRESSION: Patent airway. No specific radiographic abnormality seen.
== END 2023-04-08 06:31 | disposition home or self-care (01) ==
LOC: EC 03:59
DX: H66.91 Otitis media, unspecified, right ear (principal); J06.9 Acute upper respiratory infection, unspecified; Z91.018 Allergy to other foods; Z20.822 Contact with and (suspected) exposure to COVID-19
CPT/HCPCS: 99284 ×2; 96372 ×2; 87651; 87636; 70360; J8540; J1885

== ENCOUNTER → 2024-01-23 | Outpatient (CLI) | payer MEDICAID ==
[2024-01-23 09:32] LABS: HCT 41.5 % (34.0-46.0); HGB 13.5 gm/dL (11.4-16.0); MCHC 32.5 g/dL (31.0-37.0); MCV 89.4 fL (80.0-100.0); Mean Platelet Volume 9.5; Platelet Count 209 k/uL (150-450); RBC 4.64 m/uL (3.80-5.40); RDW 14.1 % (11.5-15.5); WBC 6.3 k/uL (3.8-10.6)
[2024-01-23 09:56] LABS: ALT 14 U/L (4-34); AST 24 U/L (14-36); African American GFR (CKD) >90 (>60 ml/min/1.73 sqM); Albumin 4.4 g/dL (3.5-5.0); Albumin/Globulin Ratio 1.8; Alkaline Phosphatase 73 U/L (38-126); Anion Gap 7 mmol/L; Blood Urea Nitrogen 14 mg/dL (7-17); Calcium 9.2 mg/dL (8.4-10.2); Carbon Dioxide 26 mmol/L (22-30); Chloride 108 mmol/L (98-107); Globulin 2.4 g/dL; Glucose 99 mg/dL (74-99); Non-African American GFR(CKD) >90 (>60 ml/min/1.73 sqM); Sodium 141 mmol/L (137-145); Total Bilirubin 0.9 mg/dL (0.2-1.3); Total Protein 6.8 g/dL (6.3-8.2)
[2024-01-23 15:54] LABS: % Iron Saturation 22.29 (12.00-45.00); Chol/HDL Ratio 4.26 Ratio; Iron 72 UG/DL (50-170); LDL Cholesterol,Calculated 156.2 mg/dL (0.0-131.0); Total Iron Binding Capacity 323 UG/DL (228-460); VLDL Calculation 11.36 mg/dL (5.00-40.00)
[2024-01-23 18:39] LABS: Vitamin B12 >1800.0 pg/mL (200.0-944.0)
== END ==
LOC: LABMAIN 09:08
PROVIDERS: ATTEND Family Medicine
DX: Z00.01 Encounter for general adult medical examination with abnormal findings
CPT/HCPCS: 80053; 80061; 82607; 82746; 82747; 83540; 83550; 85027

== ENCOUNTER → 2024-01-27 | Outpatient (CLI) | payer MEDICAID ==
--- NOTE | 2024-02-01 09:42 | MM ---
Reason for Exam: Screening (asymptomatic). Patient History: Menarche at age 13. Patient has no children. Hormonal Contraceptives, from age 15 until age 17. 2018, Reduction on the Left side. Risk Values: Niru 5 year model risk: 0.6%. NCI Lifetime model risk: 10.2%. Tissue Density: The breasts are extremely dense, which lowers the sensitivity of mammography. Findings: Analyzed By CAD. The pattern is symmetrical. No suspicious groups of microcalcifications, spiculated or lobular masses, architectural distortion or other secondary signs of malignancy are mammographically apparent. Overall Assessment: Benign, BI-RAD 2 Management: Screening Mammogram of both breasts in 1 year. A negative mammogram report should not preclude additional follow up of suspicious palpable abnormalities. Patient should continue monthly self breast exam. A clinical breast exam by your physician is recommended on an annual basis and results should be correlated with mammographic findings. Note on Niru scores and lifetime risk: 1. A Niru score greater than 3% is considered moderate risk. If this is the case, consider specialist referral to assess eligibility for a risk reducing agent. 2. If overall lifetime risk for the development of breast cancer is 20% or higher, the patient may qualify for future screening with alternating mammogram and breast MRI. [facility], , 02/01/2024 9:39 AM. Electronically signed and approved by: Vinod You D.O. Radiologis
== END | disposition home or self-care (01) ==
LOC: RADMAMWWP 07:34
PROVIDERS: ATTEND Obstetrics & Gynecology
DX: Z12.31 Encounter for screening mammogram for malignant neoplasm of breast
CPT/HCPCS: 77063; 77067

== ENCOUNTER → 2024-06-01 | Outpatient (CLI) | payer MEDICAID ==
[2024-06-01 14:50] LABS: Basophils % (A) 1 %; Eosinophils # (A) 0.2 k/uL (0-0.7); Eosinophils % (A) 2 %; HCT 42.1 % (34.0-46.0); HGB 13.7 gm/dL (11.4-16.0); Lymphocytes # (A) 1.6 k/uL (1.0-4.8); Lymphocytes % (A) 20 %; MCH 28.5 pg (25.0-35.0); MCHC 32.5 g/dL (31.0-37.0); MCV 87.7 fL (80.0-100.0); Mean Platelet Volume 8.9; Monocytes # (A) 0.3 k/uL (0-1.0); Monocytes % (A) 4 %; Neutrophils # (A) 5.8 k/uL (1.3-7.7); Neutrophils % (A) 72 %; Platelet Count 226 k/uL (150-450); RBC 4.79 m/uL (3.80-5.40); RDW 13.8 % (11.5-15.5); WBC 8.1 k/uL (3.8-10.6)
[2024-06-01 15:11] LABS: ALT 20 U/L (4-34); AST 24 U/L (14-36); African American GFR (CKD) >90 (>60 ml/min/1.73 sqM); Albumin 4.5 g/dL (3.5-5.0); Albumin/Globulin Ratio 1.8; Alkaline Phosphatase 81 U/L (38-126); Anion Gap 9 mmol/L; Blood Urea Nitrogen 14 mg/dL (7-17); Calcium 9.4 mg/dL (8.4-10.2); Carbon Dioxide 27 mmol/L (22-30); Chloride 104 mmol/L (98-107); Globulin 2.5 g/dL; Glucose 91 mg/dL (74-99); Non-African American GFR(CKD) 81 (>60 ml/min/1.73 sqM); Potassium 4.4 mmol/L (3.5-5.1); Sodium 140 mmol/L (137-145); Total Bilirubin 0.5 mg/dL (0.2-1.3)
== END | disposition home or self-care (01) ==
LOC: LABMAIN 14:33
PROVIDERS: ATTEND Family Medicine
DX: R00.2 Palpitations (principal)
CPT/HCPCS: 80053; 83735; 84443; 85025

== ENCOUNTER → 2024-07-05 | Outpatient (CLI) | payer MEDICAID ==
--- NOTE | 2024-08-09 19:20 | P.CEMON ---
Event monitor shows sinus mechanism, heart rates ranging from 50-147 beats a minute Average heart rates in the 70s No significant arrhythmias noted
--- NOTE | 2024-08-12 10:12 | EM ---
Event monitor shows sinus mechanism, heart rates ranging from 50-147 beats a minute Average heart rates in the 70s No significant arrhythmias noted. MTDD
== END | disposition home or self-care (01) ==
LOC: RADECHMAIN 07:17
PROVIDERS: ATTEND Family Medicine
DX: R00.2 Palpitations (principal)
CPT/HCPCS: 93270